=== PATIENT | female | born 1935 | race Caucasian/White ===

== ENCOUNTER 2019-08-05 16:04 | Emergency (ER) | payer MEDICARE ==
[~2019-08-05] VITALS: Ht 172.7 cm; Wt 74.8 kg
--- NOTE | 2019-08-05 16:43 | ED Upper Extremity ---
General Chief Complaint: Laceration Stated Complaint: R RINGER FINGER LACERATION Nursing Triage Note: "SMASHED MY RIGHT RING FINGER IN THE GARAGE DOOR" Nursing Sepsis Screen: No Definite Risk History of Present Illness Date Seen by Provider: Aug 05, 2019 Time Seen by Provider: 16:35 Initial Comments 84-year-old female presents to the emergency department report being that she got her right fourth finger caught in the garage door, with partial amputation of distal phalanx and nail. Patient denies other injury. 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 She is scheduled for bone marrow biopsy later this week at [facility], her oncologist is at [place]. She was recently diagnosed with a sinus infection and is starting a Z-Pack today. Onset: just prior to arrival Severity: mild Pain/Injury Location: right 4th finger Method of Injury: incised Modifying Factors: Improves With Immobilization; Worse With Movement Allergies and Home Medications Allergies Coded Allergies: Penicillins (Verified Allergy, Unknown, 08/05/19) Home Medications Cephalexin 500 Mg Capsule, 500 MG PO TID Prescribed by: CINDI GONZÁLES on 08/05/19 6986 Patient Home Medication List Home Medication List Reviewed: Yes Review of Systems Constitutional: no symptoms reported, see HPI EENTM: see HPI, no symptoms reported Respiratory: no symptoms reported, see HPI Cardiovascular: no symptoms reported, see HPI Gastrointestinal: no symptoms reported, see HPI Genitourinary: no symptoms reported, see HPI Musculoskeletal: no symptoms reported, see HPI Skin: other (partial amputation right fourth finger) Psychiatric/Neurological: No Symptoms Reported, See HPI All Other Systems Reviewed Negative Unless Noted: Yes Past Hihoqhy-Jdmtyi-Dmhjhg Hx Past Med/Social Hx: Reviewed Nursing Past Med/Soc Hx Patient Social History Alcohol Use: Occasionally Uses Alcohol Beverage of Choice: Wine Recreational Drug Use: No Recent Foreign Travel: No Contact w/Someone Who Travel: No Recent Infectious Disease Expo: No Recent Hopitalizations: No Physical Abuse: No Sexual Abuse: No Mistreated: No Fear: No Immunizations Up To Date Tetanus Booster (TDap): More than 5yrs Past Medical History Surgeries: Yes Hysterectomy, Orthopedic Respiratory: No Cardiac: No Neurological: No : No [employer] History: Hysterectomy Genitourinary: No Gastrointestinal: No Musculoskeletal: No Lupus HEENT: No Cancer: Yes Leukemia Did You Recieve Any Treatments: Yes What Type of Treatment Did You: Chemotherapy Psychosocial: No Integumentary: No Blood Disorders: Yes Physical Exam Vital Signs Vital Signs - First Documented 08/05/19 16:20 Temp 36.5 Pulse 83 Resp 18 B/P (MAP) 156/64 (94) Pulse Ox 96 Capillary Refill : Less Than 3 Seconds Height, Weight, BMI Height: '" Weight: lbs. oz. kg; 25.00 BMI Method: General Appearance: WD/WN, no apparent distress Neck: non-tender, full range of motion, supple, normal inspection Cardiovascular: normal peripheral pulses, regular rate, rhythm, no murmur Respiratory: chest non-tender, lungs clear, normal breath sounds Gastrointestinal: normal bowel sounds, non tender, soft Hand: Right, bone tenderness, laceration (4th digit, distal tip), nail injury, soft tissue tenderness, swelling Neurologic/Tendon: normal sensation, normal motor functions, normal tendon functions Neurologic/Psychiatric: no motor/sensory deficits, alert, normal mood/affect, oriented x 3 Distal tip of pulp and nail traumatically amputated. Full coverage of soft tissue over distal phalynx. No epidermis to fully cover wound. Procedures/Interventions Wound Location: Upper Extremities (left 4th finger tip) Wound's Depth, Shape: into muscle, nail-avulsed (partial, distal) Wound Explored: clean Irrigated w/ Saline (ccs): 500 Betadine Prep?: Yes Anesthesia: 1% Lidocaine (Digital block) Volume Anesthetic (ccs): 8 Suture: Ethlion Suture Size: 5-0 Number of Sutures: 3 Sterile Dressing Applied?: Yes Progress Attempted to approximate wound, slightly, but limited skin for coverage. Non- adherent bulky sterile dressing applied. Progress/Results/Core Measures Results/Orders My Orders Orders - CINDI GONZÁLES Dipht,Pertuss(Acell),Tet Adult (Boostrix (08/05/19 16:45) Finger(S) (08/05/19 16:40) Medications Given in ED Current Medications Medications Dose Ordered Sig/Rosalie Route Start Time Stop Time Status Last Admin Dose Admin Diphtheria/ Tetanus/Acell Pertussis 0.5 ml ONCE ONCE IM 08/05/19 16:45 08/05/19 16:47 DC 08/05/19 17:31 0.5 ML Vital Signs/I&O 08/05/19 08/05/19 16:20 18:04 Temp 36.5 36.5 Pulse 83 83 Resp 18 18 B/P (MAP) 156/64 (94) 156/64 (94) Pulse Ox 96 96 Blood Pressure Mean: 94 POS Progress Progress Note : Time: 16:35 Progress Note Patient seen and evaluated, will obtain x-ray of the right fourth finger. 1700 Spoke to Mani Quiles APRN, agreed with plan of care, will see patient on Mon in their [place] [facility]. 1745 discharge instructions and return precautions reviewed with the patient in detail. She understands that this is going to have to heal by secondary intentions, since no skin to fully cover the amputated area. With her history of leukemia she is at higher risk for infection. Careful follow up and wound care with Dr. Rajan may be necessary. Departure Impression Primary Impression: Partial traumatic amputation of finger through phalanx Qualified Codes: S68.629A - Partial traumatic transphalangeal amputation of unspecified finger, initial encounter Disposition: HOME, SELF-CARE Condition: Improved Departure-Patient Inst. Decision time for Depature: 17:45 Referrals: NO,LOCAL PHYSICIAN (PCP) Primary Care Physician JULITA BATES DO Patient Instructions: Diphtheria and Tetanus Toxoids, and Acellular Pertussis Vaccine, Finger Fracture (DC) Add. Discharge Instructions: Keep the dressing clean and dry. Keep the dressing on until your appointment with Dr. Bates on Monday, August 07 Follow-up with Dr. Bates of Monday this week, call their office for appt: [phone]. Spoke to Mani Quiles APRN. Take antibiotics as prescribed in their entirety Continue to keep your hand elevated You may use ice on your finger for 20 minutes every hour. You may take Tylenol 650 mg as needed every 8 hours for pain Return to the emergency department for foul-smelling drainage, increased swelling, redness and any other emergent conditions as necessary. All discharge instructions reviewed with patient and/or family. Voiced understanding. Scripts Cephalexin (Keflex) 500 Mg Capsule 500 MG PO TID for 5 Days, #15 CAP Prov: CINDI GONZÁLES 08/05/19 Copy Copies To 1: JULITA BATES AMY ARNP Aug 05, 2019 16:43 POS
[2019-08-05] MEDS ORDERED: TETANUS,DIPTH,PERTUSS P/F (BOOSTRIX) 0.5 ML VIAL IM ONE (16:45)
--- NOTE | 2019-08-05 17:26 | Diagnostic Imaging Report ---
INDICATION: Caught distal finger between garage panels. TECHNIQUE: Single PA view right hand with additional 3 views right 4th finger, 4:57 PM. CORRELATION STUDY: None FINDINGS: There is a soft tissue defect at the distal tip of the 4th digit. There is very slight bony avulsion with absence of the distal tuft. Remaining osseous structures otherwise intact demonstrate no acute abnormality. Rather advanced significant joint space narrowing and degenerative changes through a large number of the joints. Most pronounced through the interphalangeal joints of the various digits but most pronounced at the 2nd and 3rd digits along with significant degenerative changes of the 2nd and 3rd metacarpophalangeal joints and base of the thumb. Generalized bony demineralization. IMPRESSION: 1. Prominent soft tissue defect at the distal aspect of the ring finger. Very slight bony defect off the distal tuft. Dictated by: Dictated on workstation # [id number]
[2019-08-05] MEDS ORDERED: CEPH-507 PO ×2 (17:48→17:56)
[2019-08-05 18:04] VITALS: BP 156/64
== END 2019-08-05 18:04 | disposition home or self-care (01) ==
LOC: EDUNIT# 16:04 → ER 16:07
DX: S68.624A Partial traumatic transphalangeal amputation of right ring finger, initial encounter (principal); Z88.0 Allergy status to penicillin; Z90.710 Acquired absence of both cervix and uterus; Z87.39 Personal history of other diseases of the musculoskeletal system and connective tissue; Z85.6 Personal history of leukemia; W23.1XXA Caught, crushed, jammed, or pinched between stationary objects, initial encounter; Y92.59 Other trade areas as the place of occurrence of the external cause
CPT/HCPCS: 73140; 90715